=== PATIENT | male | born 1955 ===

== ENCOUNTER 2022-12-02 11:57 | Emergency (ER) | payer OTHER ==
[~2022-12-02] VITALS: Ht 177.8 cm; Wt 65.8 kg
[~2022-12-02 11:57] MED LIST: GABA-534 PO; LEVO750T46 PO
--- NOTE | 2022-12-02 12:23 | NUR ---
Pt seen by MD for bedside eval. Safety measures in place. Will continue to monitor.
[2022-12-02 12:26] LABS: MEAN CORPUSCULAR HEMOGLOBIN 30.3 uug (23.8-33.4); MEAN CORPUSCULAR VOLUME 89.9 fL (73.0-96.2); PLATELET COUNT (AUTO) 206 K/uL (152-348)
[2022-12-02 12:47] LABS: CREATININE 1.2 mg/dL (0.6-1.3); POTASSIUM 3.9 mmol/L (3.5-5.1)
[2022-12-02] MEDS: DICYCLOMINE HCL 20 MG/2 ML AMPUL IM SCH ×2 (12:52→15:18)
[2022-12-02 12:54] LABS: BILIRUBIN,DIRECT 0.2 mg/dL (0.0-0.2); BILIRUBIN,TOTAL 0.6 mg/dL (0.2-1.0); TOTAL PROTEIN, SERUM 9.1 g/dL (6.4-8.2)
--- NOTE | 2022-12-02 13:24 | NUR ---
Administered Bentyl 30 min. ago. However, Rapidlea shows it can still be administered after I already administered. Will leave medication as is.
[2022-12-02] MEDS ORDERED: HYDROMORPHONE 1 MG/1 ML DISP.SYRIN IV ONE ×3 (13:30→15:00)
[2022-12-02] MEDS ORDERED: ONDANSETRON 4 MG/2 ML VIAL IV ONE (13:30)
[2022-12-02] MEDS ORDERED: ONDANSETRON 4 MG/2 ML VIAL ONE (13:56)
[2022-12-02] MEDS ORDERED: HYDROMORPHONE 1 MG/1 ML DISP.SYRIN ONE ×2 (13:57→14:52)
--- NOTE | 2022-12-02 14:35 | NUR ---
Spoke with Cassi from [facility], requested information provided. She stated their doctor will call back and speak with .
--- NOTE | 2022-12-02 15:00 | NUR ---
ordered another 0.5mg of dilaudid. Used remaining 0.5mg of previous dilaudid that I pulled for omnicell. No need for witness ID as all 1mg of dilaudid I pulled has been used on pt as ordered.
--- NOTE | 2022-12-02 16:08 | NUR ---
Patient discharged to home in stable condition. Written and verbal after care instructions given. Patient verbalizes understanding of instructions. Stressed follow up or return to ER for worsening s/s.
[2022-12-02 16:09] VITALS: BP 115/82
== END 2022-12-02 16:10 | disposition home or self-care (01) ==
LOC: ER 11:57
DX: R10.9 Unspecified abdominal pain (principal); R07.89 Other chest pain; Z79.2 Long term (current) use of antibiotics; Z79.899 Other long term (current) drug therapy; Z20.822 Contact with and (suspected) exposure to COVID-19
CPT/HCPCS: 99285; 74176; 96374; 71045; 96375; 87426; 80076; 80048; 83690; 85025; 36415; 93005; 96376; J0500; J2405; J1170 ×2; A4663

== ENCOUNTER 2023-04-22 06:28 | Emergency (ER) | payer OTHER ==
[~2023-04-22] VITALS: Ht 177.8 cm; Wt 63.5 kg
[2023-04-22] MEDS ORDERED: METO-357 PO (06:39)
[2023-04-22] MEDS ORDERED: ATOR80TA PO (06:39)
[2023-04-22] MEDS ORDERED: IV NORMAL SALINE 1000 ML BAG IV ONE (07:00)
[2023-04-22] MEDS ORDERED: HYDROMORPHONE 1 MG/1 ML DISP.SYRIN IV ONE ×3 (07:00→10:00)
[2023-04-22] MEDS ORDERED: ONDANSETRON 4 MG/2 ML VIAL IV ONE (07:00)
[2023-04-22] MEDS ORDERED: HYDROMORPHONE 1 MG/1 ML DISP.SYRIN ONE ×2 (07:14→09:57)
[2023-04-22] MEDS ORDERED: ONDANSETRON 4 MG/2 ML VIAL ONE (07:14)
[2023-04-22 07:22] LABS: BASOPHILS # (AUTO) 0.1 K/UL (0.0-0.2); BASOPHILS % (AUTO) 0.6 % (0.0-2.0); EOSINOPHILS # (AUTO) 0.1 K/uL (0.0-0.7); EOSINOPHILS % (AUTO) 0.7 % (0.0-7.0); HEMATOCRIT 44.8 % (36.7-47.1); HEMOGLOBIN 15.3 g/dL (12.5-16.3); LYMPHOCYTES # (AUTO) 1.8 K/uL (0.8-4.8); LYMPHOCYTES % (AUTO) 18.7 % (20.5-51.5); MEAN CORPUSCULAR HEMOGLOBIN 30.8 uug (23.8-33.4); MEAN CORPUSCULAR HGB CONC 34 g/dL (32.5-36.3); MEAN CORPUSCULAR VOLUME 90.1 fL (73.0-96.2); MONOCYTES # (AUTO) 0.7 K/uL (0.1-1.30); MONOCYTES % (AUTO) 7.3 % (0.0-11.0); NEUTROPHILS # (AUTO) 6.9 K/uL (1.8-8.9); NEUTROPHILS % (AUTO) 72.7 % (38.5-71.5); PLATELET COUNT (AUTO) 298 K/uL (152-348); RED BLOOD CELL COUNT(AUTO) 4.98 MIL/uL (4.06-5.63); RED CELL DISTRIBUTION WIDTH 14.4 % (12.1-16.2); WHITE BLOOD COUNT (AUTO) 9.5 K/uL (3.6-10.2)
[2023-04-22 07:30] LABS: DIFFERENTIAL COMMENT 1
[2023-04-22 07:53] LABS: ALBUMIN 3.3 g/dL (3.4-5.0); BILIRUBIN,DIRECT 0.1 mg/dL (0.0-0.2); BILIRUBIN,TOTAL 0.7 mg/dL (0.2-1.0); CALCIUM 9.2 mg/dL (8.5-10.1); CREATININE 1.1 mg/dL (0.6-1.3); TOTAL PROTEIN, SERUM 8.6 g/dL (6.4-8.2)
[2023-04-22 10:36] VITALS: BP 131/78; TEMP 98.9; O2SAT 97
== END 2023-04-22 10:38 | disposition home or self-care (01) ==
LOC: ER 06:33
DX: R10.84 Generalized abdominal pain (principal); E78.5 Hyperlipidemia, unspecified; J44.9 Chronic obstructive pulmonary disease, unspecified; F17.210 Nicotine dependence, cigarettes, uncomplicated; Z79.2 Long term (current) use of antibiotics; Z79.899 Other long term (current) drug therapy
CPT/HCPCS: 99285; 74176; 96374; 96361; 96375; 80076; 80048; 83690; 85025; 87040 ×2; 36415; 96376; J2405; J1170 ×2; J7040; A4606; A4663

== ENCOUNTER 2024-01-01 16:12 | Inpatient (IN) | payer OTHER, MEDICAID ==
[~2024-01-01] VITALS: Ht 170.2 cm; Wt 61.2 kg
[~2024-01-01 16:12] MED LIST changes: +ATOR80TA PO; -GABA-534 PO; -LEVO750T46 PO; +METO-357 PO
[2024-01-01] MEDS: IV NORMAL SALINE 1000 ML BAG IV ONE (16:37)
[2024-01-01] MEDS ORDERED: ALBU8HFA4 (17:24)
[2024-01-01] MEDS ORDERED: GABA800T11 PO (17:24)
[2024-01-01] MEDS ORDERED: CHOL400T PO (17:24)
[2024-01-01] MEDS ORDERED: HYDR-3980 PO (17:24)
[2024-01-01] MEDS ORDERED: CYCL10TA9 PO (17:24)
[2024-01-01] MEDS ORDERED: DICY10CA21 PO (17:24)
[2024-01-01] MEDS ORDERED: ONDA8TAB13 PO (17:24)
[2024-01-01] MEDS ORDERED: DIAZ10TA4 PO (17:24)
[2024-01-01] MEDS ORDERED: diphenhydrAMINE 50 MG/1 ML VIAL ONE (17:33)
[2024-01-01] MEDS ORDERED: HALOPERIDOL LACTATE 5 MG/1 ML VIAL ONE (17:33)
[2024-01-01] MEDS ORDERED: LORAZEPAM 2 MG/1 ML VIAL ONE (17:34)
[2024-01-01] MEDS: HALOPERIDOL LACTATE 5 MG/1 ML VIAL IV ONE (17:44)
[2024-01-01] MEDS: diphenhydrAMINE 50 MG/1 ML VIAL IV ONE (17:44)
[2024-01-01] MEDS: LORAZEPAM 2 MG/1 ML VIAL IV ONE (17:44)
[2024-01-01 18:36] LABS: *BLOOD, URINE 2+ (NEGATIVE); *CLARITY,URINE CLOUDY (CLEAR); *COLOR,URINE DARK YELLOW (YELLOW); *KETONES,URINE 1+ (NEGATIVE); LEUKOCYTE ESTERASE ,URINE 3+ (NEGATIVE); NITRITE, URINE NEGATIVE (NEGATIVE); PH,URINE 5.5 (5.0-8.0); UGLUCOSE NEGATIVE (NEGATIVE)
[2024-01-01 18:42] LABS: *BILIRUBIN,URIN 3+ (NEGATIVE); *PROTEIN,URINE 3+ (NEGATIVE)
[2024-01-01 18:53] LABS: BACTERIA,URINE MANY /HPF (NONE SEEN); SQUAMOUS EPITHELIAL CELL,UR FEW /HPF (NONE SEEN); WBC,URINE TNTC /HPF (0-3)
[2024-01-01 18:59] LABS: *AMPHETAMINE, URINE NEGATIVE (NEGATIVE); *BARBITURATE, URINE NEGATIVE (NEGATIVE); *BENZODIAZEPINE, URINE POSITIVE (NEGATIVE); *CANNABINOID, URINE NEGATIVE (NEGATIVE); *COCCAINE, URINE NEGATIVE (NEGATIVE); *OPIATE, URINE POSITIVE (NEGATIVE); *PHENCYCLIDINE SCREEN,URINE NEGATIVE (NEGATIVE)
[2024-01-01 19:02] LABS: FENTANYL, URINE NEGATIVE (NEGATIVE)
[2024-01-01] MEDS: OLANZAPINE 10 MG VIAL IM ONE (19:11)
[2024-01-01] MEDS ORDERED: CEFEPIME HCL 1 G VIAL ONE ×2 (19:16→22:54)
[2024-01-01] MEDS: CEFEPIME HCL 2 G in IV DEXTROSE 5% 100 ML IV ONE (19:45)
[2024-01-01 20:03] LABS: CARBON DIOXIDE 22 mmol/L (21-32); CHLORIDE 102 mmol/L (98-107); CREATININE 1.8 mg/dL (0.6-1.3); GLUCOSE 127 mg/dL (74-106); SODIUM SERUM 141 mmol/L (136-145); UREA NITROGEN, BLOOD 29 mg/dL (7-18)
[2024-01-01 20:07] LABS: AMMONIA < 10 umol/L (11-32)
[2024-01-01 20:11] LABS: BASOPHILS # (AUTO) 0.1 K/UL (0.0-0.2); BASOPHILS % (AUTO) 0.8 % (0.0-2.0); DIFFERENTIAL COMMENT 0; EOSINOPHILS # (AUTO) 0.4 K/uL (0.0-0.7); EOSINOPHILS % (AUTO) 2.9 % (0.0-7.0); HEMOGLOBIN 18.5 g/dL (12.5-16.3); LYMPHOCYTES # (AUTO) 0.9 K/uL (0.8-4.8); LYMPHOCYTES % (AUTO) 6.3 % (20.5-51.5); MEAN CORPUSCULAR HEMOGLOBIN 29.8 uug (23.8-33.4); MEAN CORPUSCULAR HGB CONC 33 g/dL (32.5-36.3); MEAN CORPUSCULAR VOLUME 90.4 fL (73.0-96.2); MONOCYTES # (AUTO) 0.4 K/uL (0.1-1.30); MONOCYTES % (AUTO) 2.8 % (0.0-11.0); NEUTROPHILS # (AUTO) 12.7 K/uL (1.8-8.9); NEUTROPHILS % (AUTO) 87.2 % (38.5-71.5); PLATELET COUNT (AUTO) 207 K/uL (152-348); RED BLOOD CELL COUNT(AUTO) 6.19 MIL/uL (4.06-5.63); RED CELL DISTRIBUTION WIDTH 14.5 % (12.1-16.2); WHITE BLOOD COUNT (AUTO) 14.6 K/uL (3.6-10.2)
[2024-01-01 20:12] LABS: ALANINE AMINOTRANSFERASE 22 U/L (16-63); ALKALINE PHOSPHATASE 86 U/L (50-136); ASPARTATE AMINOTRANSFERASE 14 U/L (15-37); BILIRUBIN,DIRECT 0.2 mg/dL (0.0-0.2); TOTAL PROTEIN, SERUM 10.3 g/dL (6.4-8.2)
[2024-01-01 20:19] LABS: LACTIC ACID 4.6 mmol/L (0.4-2.0); THYROID STIMULATING HORMONE 1.901 mIU/mL (0.358-3.740)
[2024-01-01 20:23] LABS: ETHANOL < 3 MG/DL (0-10)
[2024-01-01] MEDS: IV NS 1000 ML 1,000 ML IV ONE (20:35)
[2024-01-01 21:00] LABS: MAGNESIUM 2.3 mg/dL (1.8-2.4)
[2024-01-01] MEDS ORDERED: ALBUTEROL SULFATE 8 GM HFA.AER.AD INH PRN (21:00)
[2024-01-01] MEDS ORDERED: DICYCLOMINE HCL 10 MG CAPSULE PO SCH (21:00)
[2024-01-01] MEDS ORDERED: GABAPENTIN PO SCH (21:00)
[2024-01-01] MEDS ORDERED: QUETIAPINE FUMARATE 25 MG TABLET PO PRN (21:00)
[2024-01-01] MEDS ORDERED: ZOLPIDEM 5 MG TABLET PO PRN (21:00)
[2024-01-01] MEDS ORDERED: MAGNESIUM HYDROXIDE 30 ML LIQUID UDC PO PRN (21:00)
[2024-01-01] MEDS ORDERED: REMEDY ESSENTIAL ZINC PASTE 113 GM TP PRN (21:00)
[2024-01-01] MEDS: ATORVASTATIN 40 MG TABLET PO SCH (21:00)
[2024-01-01 21:37] LABS: BAND % (MANUAL) 12 % (0-10); LYMPHOCYTES % (MANUAL) 7 % (20-40); MONOCYTES % (MANUAL) 8 % (2-10); NEUTROPHILS % (MANUAL) 72 % (42-75); PLATELET ESTIMATE ADEQUATE
[2024-01-01 21:52] VITALS: BP 115/75; TEMP 98.3; O2SAT 98
[2024-01-02] VITALS (7 sets, daily range): BP systolic 150–177; BP diastolic 71–96; TEMP 97.5–98.8; O2SAT 95–100
[2024-01-02] MEDS: CEFEPIME HCL 1 G in IV DEXTROSE 5% 50 ML IV SCH (05:13)
[2024-01-02] MEDS ORDERED: ALBUTEROL SULFATE 1.25 MG/3 ML NEBU NEB PRN (06:00)
[2024-01-02] MEDS: IV NS 1000 ML 1,000 ML IV PRN (06:13)
[2024-01-02 07:17] LABS: BASOPHILS # (AUTO) 0.1 K/UL (0.0-0.2); BASOPHILS % (AUTO) 0.4 % (0.0-2.0); EOSINOPHILS % (AUTO) 0.3 % (0.0-7.0); HEMATOCRIT 54.1 % (36.7-47.1); HEMOGLOBIN 17.7 g/dL (12.5-16.3); LYMPHOCYTES # (AUTO) 1.5 K/uL (0.8-4.8); LYMPHOCYTES % (AUTO) 10.1 % (20.5-51.5); MEAN CORPUSCULAR HGB CONC 33 g/dL (32.5-36.3); MEAN CORPUSCULAR VOLUME 91.6 fL (73.0-96.2); MONOCYTES # (AUTO) 0.7 K/uL (0.1-1.30); MONOCYTES % (AUTO) 4.9 % (0.0-11.0); NEUTROPHILS # (AUTO) 12.6 K/uL (1.8-8.9); NEUTROPHILS % (AUTO) 84.3 % (38.5-71.5); PLATELET COUNT (AUTO) 170 K/uL (152-348); RED BLOOD CELL COUNT(AUTO) 5.91 MIL/uL (4.06-5.63); RED CELL DISTRIBUTION WIDTH 14.8 % (12.1-16.2); WHITE BLOOD COUNT (AUTO) 14.9 K/uL (3.6-10.2)
[2024-01-02 07:22] LABS: DIFFERENTIAL COMMENT 1
[2024-01-02 07:35] LABS: ALBUMIN 3.6 g/dL (3.4-5.0); CALCIUM 9.4 mg/dL (8.5-10.1); CREATININE 1.4 mg/dL (0.6-1.3); MAGNESIUM 2.2 mg/dL (1.8-2.4); PHOSPHOROUS 3.1 mg/dL (2.5-4.9); POTASSIUM 4.1 mmol/L (3.5-5.1); TOTAL PROTEIN, SERUM 9.5 g/dL (6.4-8.2)
[2024-01-02] MEDS: METOPROLOL SUCCINATE XL 50 MG TAB.SR.24H PO SCH (08:59)
[2024-01-02] MEDS: CHOLECALCIFEROL 1,000 UNIT TABLET PO SCH (09:00)
[2024-01-02] MEDS ORDERED: CHOLECALCIFEROL 400 UNITS TABLET PO SCH (09:00)
[2024-01-02] MEDS: hydrALAZINE HCL 20 MG/1 ML VIAL IV PRN (14:46)
[2024-01-02] MEDS: GABAPENTIN 300 MG CAPSULE PO SCH (17:00)
[2024-01-02] MEDS: CYCLOBENZAPRINE HCL 10 MG TABLET PO SCH (17:23)
[2024-01-02 17:52] LABS: *BILIRUBIN,URIN NEGATIVE (NEGATIVE); *BLOOD, URINE 2+ (NEGATIVE); *CLARITY,URINE CLEAR (CLEAR); *COLOR,URINE YELLOW (YELLOW); *KETONES,URINE 1+ (NEGATIVE); *PROTEIN,URINE 1+ (NEGATIVE); *UROBILINOGEN,URINE 0.2 E.U./dl (NORMAL); LEUKOCYTE ESTERASE ,URINE 1+ (NEGATIVE); NITRITE, URINE NEGATIVE (NEGATIVE); PH,URINE 5.5 (5.0-8.0); UGLUCOSE NEGATIVE (NEGATIVE)
[2024-01-02 18:01] LABS: *CREATININE,URINE 134.8 mg/dL (30-125); *URINE TOTAL PROTEIN RANDOM 74.7 mg/dL (<150/24HR)
[2024-01-03 06:10] VITALS: BP 151/88; TEMP 97.6; O2SAT 96
[2024-01-03 07:28] LABS: BASOPHILS # (AUTO) 0.1 K/UL (0.0-0.2); BASOPHILS % (AUTO) 0.5 % (0.0-2.0); EOSINOPHILS % (AUTO) 0.2 % (0.0-7.0); HEMATOCRIT 50.4 % (36.7-47.1); HEMOGLOBIN 16.8 g/dL (12.5-16.3); LYMPHOCYTES # (AUTO) 1.5 K/uL (0.8-4.8); LYMPHOCYTES % (AUTO) 9.7 % (20.5-51.5); MEAN CORPUSCULAR HGB CONC 33 g/dL (32.5-36.3); MONOCYTES # (AUTO) 0.9 K/uL (0.1-1.30); MONOCYTES % (AUTO) 6.2 % (0.0-11.0); NEUTROPHILS # (AUTO) 12.7 K/uL (1.8-8.9); NEUTROPHILS % (AUTO) 83.4 % (38.5-71.5); PLATELET COUNT (AUTO) 181 K/uL (152-348); WHITE BLOOD COUNT (AUTO) 15.2 K/uL (3.6-10.2)
[2024-01-03 07:33] LABS: DIFFERENTIAL COMMENT 1
[2024-01-03 08:13] LABS: ALBUMIN 3.4 g/dL (3.4-5.0); BILIRUBIN,TOTAL 1.1 mg/dL (0.2-1.0); CALCIUM 9.4 mg/dL (8.5-10.1); CREATININE 1.1 mg/dL (0.6-1.3); MAGNESIUM 2.2 mg/dL (1.8-2.4); PHOSPHOROUS 2.8 mg/dL (2.5-4.9); POTASSIUM 3.9 mmol/L (3.5-5.1); TOTAL PROTEIN, SERUM 8.8 g/dL (6.4-8.2)
[2024-01-03 11:00] VITALS: BP 171/91; TEMP 98.5; O2SAT 97
[2024-01-03] MEDS: ONDANSETRON 4 MG/2 ML VIAL IV PRN (13:14)
[2024-01-03] MEDS: PROTEIN SUPPLEMENT (PROSTAT) 30 ML LIQUID PO SCH (16:57)
[2024-01-03] MEDS: OLANZAPINE ZYDIS 5 MG TAB.RAPDIS PO SCH (16:57)
[2024-01-03 20:00] VITALS: BP 173/112; TEMP 98.5; O2SAT 100
[2024-01-03] MEDS: DIVALPROEX SPRINKLE 125 MG CAP.SPRINK PO SCH (20:23)
[2024-01-04] MEDS: ACETAMINOPHEN 325 MG TABLET PO PRN (01:33)
[2024-01-04 06:00] VITALS: BP 180/95; TEMP 98.5; O2SAT 97
[2024-01-04 06:10] LABS: PTH, INTACT 18 pg/mL (15-65)
[2024-01-04 06:48] VITALS: BP 148/80
[2024-01-04 06:54] LABS: CALCIUM 9.1 mg/dL (8.5-10.1); CREATININE 0.7 mg/dL (0.6-1.3); POTASSIUM 3.9 mmol/L (3.5-5.1)
[2024-01-04 07:15] LABS: BASOPHILS % (AUTO) 0.2 % (0.0-2.0); DIFFERENTIAL COMMENT 1; EOSINOPHILS % (AUTO) 0.1 % (0.0-7.0); HEMATOCRIT 47.4 % (36.7-47.1); HEMOGLOBIN 15.6 g/dL (12.5-16.3); LYMPHOCYTES # (AUTO) 1.8 K/uL (0.8-4.8); LYMPHOCYTES % (AUTO) 10.5 % (20.5-51.5); MEAN CORPUSCULAR HEMOGLOBIN 29.8 uug (23.8-33.4); MEAN CORPUSCULAR HGB CONC 33 g/dL (32.5-36.3); MEAN CORPUSCULAR VOLUME 90.5 fL (73.0-96.2); MONOCYTES # (AUTO) 1.5 K/uL (0.1-1.30); MONOCYTES % (AUTO) 8.8 % (0.0-11.0); NEUTROPHILS % (AUTO) 80.4 % (38.5-71.5); PLATELET COUNT (AUTO) 151 K/uL (152-348); RED BLOOD CELL COUNT(AUTO) 5.24 MIL/uL (4.06-5.63); RED CELL DISTRIBUTION WIDTH 14.5 % (12.1-16.2); WHITE BLOOD COUNT (AUTO) 17.4 K/uL (3.6-10.2)
[2024-01-04 10:57] VITALS: BP 104/58; TEMP 98.3; O2SAT 95
[2024-01-04 14:08] LABS: A/G RATIO 0.7 (0.7-1.7); ALBUMIN 3.2 g/dL (2.9-4.4); ALPHA-1-GLOBULIN 0.4 g/dL (0.0-0.4); BETA GLOBULIN 1.6 g/dL (0.7-1.3); GLOBULIN, TOTAL 4.9 g/dL (2.2-3.9); M-SPIKE Not Observed g/dL (Not Observed)
[2024-01-04 15:03] VITALS: BP 165/86; TEMP 98.6; O2SAT 97
[2024-01-04 20:05] VITALS: BP 158/77; TEMP 97.8; O2SAT 98
[2024-01-05 05:40] VITALS: BP 149/72; TEMP 97.7; O2SAT 97
[2024-01-05 12:00] VITALS: BP 146/80; TEMP 97.9; O2SAT 100
[2024-01-05] MEDS: IV NS 1000 ML 1,000 ML IV PRN (12:06)
[2024-01-05 15:45] VITALS: BP 149/72; TEMP 97.9; O2SAT 100
[2024-01-05 19:00] VITALS: BP 150/69; TEMP 97.6; O2SAT 92
[2024-01-05] MEDS: OLANZAPINE 10 MG VIAL IM PRN (21:04)
[2024-01-06 06:00] VITALS: BP 153/75; TEMP 97.7; O2SAT 99
[2024-01-06 07:23] LABS: BASOPHILS # (AUTO) 0.1 K/UL (0.0-0.2); BASOPHILS % (AUTO) 0.7 % (0.0-2.0); EOSINOPHILS # (AUTO) 0.3 K/uL (0.0-0.7); EOSINOPHILS % (AUTO) 3.1 % (0.0-7.0); HEMATOCRIT 40.7 % (36.7-47.1); HEMOGLOBIN 13.6 g/dL (12.5-16.3); LYMPHOCYTES # (AUTO) 1.3 K/uL (0.8-4.8); LYMPHOCYTES % (AUTO) 16.1 % (20.5-51.5); MEAN CORPUSCULAR HEMOGLOBIN 29.7 uug (23.8-33.4); MEAN CORPUSCULAR HGB CONC 34 g/dL (32.5-36.3); MEAN CORPUSCULAR VOLUME 88.7 fL (73.0-96.2); MONOCYTES # (AUTO) 0.6 K/uL (0.1-1.30); MONOCYTES % (AUTO) 6.8 % (0.0-11.0); NEUTROPHILS # (AUTO) 6.1 K/uL (1.8-8.9); NEUTROPHILS % (AUTO) 73.3 % (38.5-71.5); PLATELET COUNT (AUTO) 145 K/uL (152-348); RED BLOOD CELL COUNT(AUTO) 4.59 MIL/uL (4.06-5.63); RED CELL DISTRIBUTION WIDTH 14.2 % (12.1-16.2); WHITE BLOOD COUNT (AUTO) 8.4 K/uL (3.6-10.2)
[2024-01-06 07:30] LABS: DIFFERENTIAL COMMENT 1
[2024-01-06 07:33] LABS: CALCIUM 8.3 mg/dL (8.5-10.1); CARBON DIOXIDE 23 mmol/L (21-32); CHLORIDE 109 mmol/L (98-107); CREATININE 0.6 mg/dL (0.6-1.3); GLUCOSE 92 mg/dL (74-106); POTASSIUM 3.2 mmol/L (3.5-5.1); SODIUM SERUM 141 mmol/L (136-145); UREA NITROGEN, BLOOD 17 mg/dL (7-18)
[2024-01-06 11:02] VITALS: BP 159/79; TEMP 97.6; O2SAT 91
[2024-01-06 11:45] VITALS: BP 159/79; TEMP 97.6; O2SAT 92
[2024-01-06] MEDS: POTASSIUM CHLORIDE 20 MEQ POWDER PACKET PO ONE (14:00)
[2024-01-06 17:36] VITALS: BP 153/89; TEMP 98.7; O2SAT 94
[2024-01-06 21:50] VITALS: BP 180/82; TEMP 98.3; O2SAT 95
[2024-01-06] MEDS: CEphaleXIN 500 MG CAPSULE PO SCH (22:02)
[2024-01-07 06:40] LABS: BASOPHILS # (AUTO) 0.3 K/UL (0.0-0.2); BASOPHILS % (AUTO) 3.2 % (0.0-2.0); EOSINOPHILS # (AUTO) 0.5 K/uL (0.0-0.7); HEMATOCRIT 42.3 % (36.7-47.1); HEMOGLOBIN 14.1 g/dL (12.5-16.3); LYMPHOCYTES # (AUTO) 0.9 K/uL (0.8-4.8); LYMPHOCYTES % (AUTO) 10.7 % (20.5-51.5); MEAN CORPUSCULAR HEMOGLOBIN 29.6 uug (23.8-33.4); MEAN CORPUSCULAR HGB CONC 33 g/dL (32.5-36.3); MEAN CORPUSCULAR VOLUME 88.5 fL (73.0-96.2); MONOCYTES # (AUTO) 0.7 K/uL (0.1-1.30); MONOCYTES % (AUTO) 7.4 % (0.0-11.0); NEUTROPHILS # (AUTO) 6.4 K/uL (1.8-8.9); NEUTROPHILS % (AUTO) 72.7 % (38.5-71.5); PLATELET COUNT (AUTO) 146 K/uL (152-348); RED BLOOD CELL COUNT(AUTO) 4.77 MIL/uL (4.06-5.63); RED CELL DISTRIBUTION WIDTH 13.7 % (12.1-16.2); WHITE BLOOD COUNT (AUTO) 8.8 K/uL (3.6-10.2)
[2024-01-07 06:46] VITALS: BP 134/82; TEMP 98.5; O2SAT 95
[2024-01-07 06:54] LABS: DIFFERENTIAL COMMENT 1
[2024-01-07 06:58] LABS: CALCIUM 8.7 mg/dL (8.5-10.1); CARBON DIOXIDE 23 mmol/L (21-32); CHLORIDE 111 mmol/L (98-107); CREATININE 0.6 mg/dL (0.6-1.3); GLUCOSE 107 mg/dL (74-106); POTASSIUM 2.9 mmol/L (3.5-5.1); SODIUM SERUM 144 mmol/L (136-145); UREA NITROGEN, BLOOD 16 mg/dL (7-18)
[2024-01-07 08:47] VITALS: BP 131/62; TEMP 98; O2SAT 96
[2024-01-07] MEDS ORDERED: POTASSIUM CHLORIDE 50 ML IV SCH (09:30)
[2024-01-07] MEDS: POTASSIUM CHLORIDE 20 MEQ in IV NS 1000 ML 1,000 ML IV PRN (10:05)
[2024-01-07] MEDS ORDERED: CEPH500C2 PO (10:35)
[2024-01-07] MEDS ORDERED: POTASSIUM CHLORIDE 20 MEQ TAB.PRT.SR PO ONE (10:45)
[2024-01-07] MEDS: POTASSIUM CHLORIDE 10 MEQ, LIDOCAINE-MPF 1% 1 ML in IV DEXTROSE 5% 100 ML IV SCH (11:04)
[2024-01-07] MEDS: OLANZAPINE 10 MG VIAL IM ONE (12:32)
[2024-01-07 15:39] VITALS: BP 152/65; TEMP 98.1; O2SAT 96
[2024-01-07 16:00] VITALS: BP 123/70; TEMP 97.6; O2SAT 97
== END 2024-01-07 18:00 | disposition home health service (06) | DRG 871 ==
LOC: ER 16:13 → TELE3 20:56 → MEDSURG3 01-02 11:36
PROVIDERS: ADMIT Nurse Practitioner Acute Care; ATTEND Nurse Practitioner Acute Care
PROC: 05H933Z Insertion of Infusion Device into Right Brachial Vein, Percutaneous Approach (ICD-10-PCS; principal; 2024-01-02)
PROC: 05HA33Z Insertion of Infusion Device into Left Brachial Vein, Percutaneous Approach (ICD-10-PCS; 2024-01-02)
DX: A41.51 Sepsis due to Escherichia coli [E. coli] (principal); E43 Unspecified severe protein-calorie malnutrition; G92.8 Other toxic encephalopathy; N17.0 Acute kidney failure with tubular necrosis; N39.0 Urinary tract infection, site not specified; E87.20 Acidosis, unspecified; F03.92 Unspecified dementia, unspecified severity, with psychotic disturbance; R65.20 Severe sepsis without septic shock; Z87.891 Personal history of nicotine dependence; Z93.3 Colostomy status; Z90.49 Acquired absence of other specified parts of digestive tract; J44.9 Chronic obstructive pulmonary disease, unspecified; E86.0 Dehydration; E78.5 Hyperlipidemia, unspecified; E87.6 Hypokalemia; Z78.1 Physical restraint status; Z95.1 Presence of aortocoronary bypass graft; Z86.73 Personal history of transient ischemic attack (TIA), and cerebral infarction without residual deficits; I25.10 Atherosclerotic heart disease of native coronary artery without angina pectoris; I25.2 Old myocardial infarction; R53.81 Other malaise; F03.90 Unspecified dementia, unspecified severity, without behavioral disturbance, psychotic disturbance, mood disturbance, and anxiety; Z68.21 Body mass index [BMI] 21.0-21.9, adult; M89.8X9 Other specified disorders of bone, unspecified site; I10 Essential (primary) hypertension; D75.1 Secondary polycythemia
CPT/HCPCS: 36415; 70030-TC; 70450; 71045; 83605; 83735; 83970; 84100; 84132; 84155; 84165; 84300; 84443; 84484; 85025; 85730; 87040; 93005; A4606; A4663; A6213; C1758; G0378; G0480; J0360; J0692; J1200; J1630; J2001; J2060; J2358; J2405; J3480; J7040